=== PATIENT | male | born 1960 | race Caucasian/White ===

== ENCOUNTER 2023-11-03 18:03 | Emergency (ER) | payer OTHER, SELFPAY ==
[2023-11-03 18:06] VITALS: BP 174/93; PULSE 80; RESP 20; TEMP 37.2; O2SAT 98; BMI 33.4
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
[2023-11-03 20:07] VITALS: BP 158/94; PULSE 80; RESP 19; O2SAT 96
== END 2023-11-03 20:08 | disposition home or self-care (01) ==
PROVIDERS: Emergency Provider Emergency Medicine; PCP Registered Nurse Diabetes Educator
DX: S16.1XXA Strain of muscle, fascia and tendon at neck level, initial encounter (principal); V89.2XXA Person injured in unspecified motor-vehicle accident, traffic, initial encounter; Y93.9 Activity, unspecified; Y92.410 Unspecified street and highway as the place of occurrence of the external cause
CPT/HCPCS: 99281; 99282